=== PATIENT | female | born 1945 | race Caucasian/White ===

== ENCOUNTER 2021-04-04 18:00 | Outpatient (CLI) | payer MEDICARE | END 2021-04-04 18:01 | disposition home or self-care (01) | LOC: SCSRAD 18:00 | PROVIDERS: ATTEND Family Medicine | DX: M79.671 Pain in right foot (principal); S92.334A Nondisplaced fracture of third metatarsal bone, right foot, initial encounter for closed fracture; S92.344A Nondisplaced fracture of fourth metatarsal bone, right foot, initial encounter for closed fracture ==